=== PATIENT | female | born 1995 | race American Indian/Alaskan Native ===

== ENCOUNTER 2019-03-09 18:30 | Emergency (ER) | payer SELFPAY ==
--- NOTE | 2019-03-09 18:58 | Event Note ---
ED Screening Note Date of service: 03/09/19 Time: 18:54 ED Screening Note: 23 y o femAle presents with low abd pain with bleeding and nausea x sunday This initial assessment/diagnostic orders/clinical plan/treatment(s) is/are subject to change based on patients health status, clinical progression and re- assessment by fellow clinical providers in the ED. Further treatment and workup at subsequent clinical providers discretion. Patient/guardian urged not to elope from the ED as their condition may be serious if not clinically assessed and managed. Initial orders include:
[2019-03-09 19:02] VITALS: BP 116/42
[2019-03-09 19:24] LABS: Mean Corpuscular HGB Conc 29 % (30-34); Red Blood Count 4.28 M/mm3 (3.65-5.03); Red Cell Distribution Width 18.1 % (13.2-15.2)
[2019-03-09] MEDS ORDERED: ZOFRAN IV ONE ×2 (19:27→20:53)
[2019-03-09] MEDS ORDERED: NACL 0.9% 1000 ML 1,000 ML IV ONE (19:27)
[2019-03-09 20:14] LABS: Hematocrit 27.3 % (30.3-42.9); Hemoglobin 7.9 gm/dl (10.1-14.3); Mean Corpuscular Volume 64 fl (79-97)
[2019-03-09 20:16] LABS: Platelet Count 166 K/mm3 (140-440)
--- NOTE | 2019-03-09 20:26 | Emergency Department Report ---
ED Abdominal Pain HPI - General Chief Complaint: Abdominal Pain Stated Complaint: PELVIC PAIN/VOMIT/ABD PAIN Time Seen by Provider: 03/09/19 18:53 Source: patient, family Mode of arrival: Ambulatory Limitations: No Limitations - History of Present Illness Initial Comments: Patient 23-year-old -[place] female who presents with abdominal pain bilateral lower quadrant vaginal bleeding times one month last menstrual cycle one month ago described as cramping 5/10 with nausea vomiting there is no fever or chills patient denies vaginal discharge no concern for STI states she is not pain worsening over the past 3 days. MD Complaint: abdominal pain Onset/Timin -: month(s) Location: LLQ, RLQ Radiation: LLQ, RLQ Migration to: LLQ, RLQ Severity: moderate Severity scale (0 -10): 4 Quality: cramping, aching Consistency: constant Improves With: nothing Worsens With: nothing Associated Symptoms: nausea, vomiting - Related Data LMP Date: 02/04/19 Previous Rx's Medication Instructions Recorded Last Taken Type Dicyclomine [Bentyl] 10 mg PO QID #20 capsule 03/09/19 Unknown Rx HYDROcodone/APAP 5-325 [[place] 1 each PO Q6HR PRN #12 tablet 03/09/19 Unknown Rx 5-325 mg TAB] Ondansetron [Zofran Odt] 4 mg PO Q8HR PRN #12 tab.rapdis 03/09/19 Unknown Rx Allergies Allergy/AdvReac Type Severity Reaction Status Date / Time No Known Allergies Allergy Unverified 03/09/19 20:12 ED Review of Systems ROS: Stated complaint: PELVIC PAIN/VOMIT/ABD PAIN Other details as noted in HPI Constitutional: denies: chills, fever Eyes: denies: eye pain, eye discharge, vision change ENT: denies: ear pain, throat pain Respiratory: denies: cough, shortness of breath, wheezing Cardiovascular: denies: chest pain, palpitations Endocrine: no symptoms reported Gastrointestinal: denies: abdominal pain, nausea, diarrhea Genitourinary: denies: urgency, dysuria, discharge Musculoskeletal: denies: back pain, joint swelling, arthralgia Skin: denies: rash, lesions Neurological: denies: headache, weakness, paresthesias Psychiatric: denies: anxiety, depression Hematological/Lymphatic: denies: easy bleeding, easy bruising ED Past Medical Hx - Past Medical History Previous Medical History?: No - Surgical History Past Surgical History?: No - Social History Smoking Status: Never Smoker Substance Use Type: None - Medications Home Medications: Home Medications Medication Instructions Recorded Confirmed Last Taken Type Dicyclomine [Bentyl] 10 mg PO QID #20 capsule 03/09/19 Unknown Rx HYDROcodone/APAP 5-325 [[place] 1 each PO Q6HR PRN #12 tablet 03/09/19 Unknown Rx 5-325 mg TAB] Ondansetron [Zofran Odt] 4 mg PO Q8HR PRN #12 tab.rapdis 03/09/19 Unknown Rx ED Physical Exam - General Limitations: No Limitations General appearance: alert, in no apparent distress - Head Head exam: Present: atraumatic, normocephalic - Eye Eye exam: Present: normal appearance, PERRL, EOMI Pupils: Present: normal accommodation - ENT ENT exam: Present: mucous membranes moist - Neck Neck exam: Present: normal inspection, full ROM. Absent: lymphadenopathy, thy romegaly - Respiratory Respiratory exam: Present: normal lung sounds bilaterally, chest wall tenderness. Absent: respiratory distress, wheezes, stridor - Cardiovascular Cardiovascular Exam: Present: regular rate, normal rhythm, normal heart sounds. Absent: systolic murmur, diastolic murmur, rubs, gallop - GI/Abdominal GI/Abdominal exam: Present: soft, tenderness (bilat Lower Quad ), normal bowel sounds. Absent: guarding, rebound, rigid, bruit, hernia - Rectal Rectal exam: Present: deferred - External exam: Present: other (exam deferred by patient) - Extremities Exam Extremities exam: Present: normal inspection - Back Exam Back exam: Present: normal inspection, full ROM. Absent: tenderness, CVA tenderness (R), CVA tenderness (L), muscle spasm, paraspinal tenderness, rash noted - Neurological Exam Neurological exam: Present: alert, oriented X3, CN II-XII intact, normal gait, reflexes normal. Absent: motor sensory deficit - Psychiatric Psychiatric exam: Present: normal affect, normal mood - Skin Skin exam: Present: warm, dry, intact, normal color. Absent: rash ED Course Vital Signs 03/09/19 03/09/19 18:57 21:00 Temperature 97.9 F Pulse Rate 50 L Respiratory 16 18 Rate Blood Pressure 116/42 O2 Sat by Pulse 100 Oximetry ED Medical Decision Making - Lab Data Result diagrams: 03/09/19 19:09 Labs 03/09/19 03/09/19 03/09/19 19:09 19:09 19:50 WBC 11.6 H RBC 4.28 Hgb 7.9 L Hct 27.3 L MCV 64 L MCH 18 L MCHC 29 L RDW 18.1 H Plt Count 166 Seg Neutrophils % Weekend Receptionist HCG, Qual Positive Urine Color Yellow Urine Turbidity Slightly-cloudy Urine pH 7.0 Ur Specific [place] 1.024 Urine Protein 30 mg/dl Urine Glucose (UA) Neg Urine Ketones 80 Urine Blood Lg Urine Nitrite Neg Urine Bilirubin Neg Urine Urobilinogen < 2.0 Ur Leukocyte Esterase Tr Urine WBC (Auto) 3.0 Urine RBC (Auto) 3.0 U Epithel Cells (Auto) 11.0 Urine Mucus 1+ - Radiology Data Radiology results: report reviewed, image reviewed Ordering Physician: ZARI CAVAZOS NP Date of Service: 03/09/19 Procedure(s): US OB transvaginal Accession Number(s): [id number] cc: ZARI CAVAZOS NP ULTRASOUND OBSTETRIC INDICATION: Abdominal pain. Vaginal bleeding. Recent per patient. TECHNIQUE: Transvaginal. COMPARISON: None available. FINDINGS: UTERUS: Normal in size, measuring 10.2 x 5.1 x 6.1 cm, without visualization of a gestational sac. The endometrial canal is distended by hyperechoic material without color flow, likely representing blood products. No additional significant abnormality. OVARIES: Normal in size and appearance with expected color flow. No sonographic evidence of an ectopic . FREE FLUID: None seen. ADDITIONAL FINDINGS: None. IMPRESSION: 1. No intrauterine or ectopic is identified sonographically. 2. Distention of the endometrial canal by probable blood products. Signer Name: Stephen Shields MD Signed: 03/09/2019 9:02 PM Workstation Name: [id number] Transcribed By: [place] Dictated By: Stephen Shields MD Electronically Authenticated By: Stephen Shields MD Signed Date/Time: 03/09/192101 DD/ 58 TD/TT: - Medical Decision Making Patient verbalizes she had an on Sunday, 2 days ago, vaginal bleeding is scant 1-2 pads day, H&H is normal ultrasound demonstrates no k no retained parts of conception, symptoms are pain related plan bentyl, zofran, hydrocodone for 2-3 days follow-up with RN POOL on Sunday as scheduled patient tolerated by mouth intake without nausea vomiting pain is relieved to 2/10 patient states she did advise that she had had an due to brother being in room previously patient is to return to ED should symptoms worsen patient DC'd to home in stable condition at this time patient verbalized agreement and understanding with same Critical care attestation.: If time is entered above; I have spent that time in minutes in the direct care of this critically ill patient, excluding procedure time. ED Disposition Clinical Impression: Abdominal pain Qualifiers: Abdominal location: lower abdomen, unspecified Qualified Code(s): R10.30 - Lower abdominal pain, unspecified Disposition: DC- TO HOME OR SELFCARE Is pt being admited?: No Does the pt Need Aspirin: No Condition: Stable Instructions: Abdominal Pain (ED) Prescriptions: Dicyclomine [Bentyl] 10 mg PO QID #20 capsule HYDROcodone/APAP 5-325 [[place] 5-325 mg TAB] 1 each PO Q6HR PRN #12 tablet PRN Reason: Pain Ondansetron [Zofran Odt] 4 mg PO Q8HR PRN #12 tab.rapdis PRN Reason: Nausea And Vomiting Referrals: ALEC LONG MD [Staff Physician] - 3-5 Days Forms: Work/School Release Form(ED) Time of Disposition: 21:17
[2019-03-09 20:28] LABS: Bilirubin,Urine NEG (Negative); Blood,Urine LG (Negative); Color,Urine Yellow (Yellow); Mucus,Urine 1+ /HPF; Urobilinogen,Urine < 2.0 mg/dL (<2.0)
[2019-03-09] MEDS ORDERED: MORPHINE IV ONE (20:53)
--- NOTE | 2019-03-09 21:07 | Ultrasound Report ---
ULTRASOUND OBSTETRIC INDICATION: Abdominal pain. Vaginal bleeding. Recent per patient. TECHNIQUE: Transvaginal. COMPARISON: None available. FINDINGS: UTERUS: Normal in size, measuring 10.2 x 5.1 x 6.1 cm, without visualization of a gestational sac. Th e endometrial canal is distended by hyperechoic material without color flow, likely representing bloo d products. No additional significant abnormality. OVARIES: Normal in size and appearance with expected color flow. No sonographic evidence of an ectopi c . FREE FLUID: None seen. ADDITIONAL FINDINGS: None. IMPRESSION: 1. No intrauterine or ectopic is identified sonographically. 2. Distention of the endometrial canal by probable blood products. Signer Name: Stephen Shields MD Signed: 03/09/2019 9:02 PM Workstation Name: [id number]
[2019-03-09 21:15] LABS: Band Neutrophils # (Manual) 0.2 K/mm3; Basophils % (Manual) 0 % (0.0-1.8); Eosinophils % (Manual) 0 % (0.0-4.3); Total Cells Counted 100
[2019-03-09 21:16] LABS: Hypochromasia 2+; Large Platelets 1+; Ovalocytes 1+; Tear Drop Cells 1+
[2019-03-09 21:17] LABS: Platelet Clumps Few; Platelet Estimate Consistent w Auto
== END 2019-03-09 21:26 | disposition home or self-care (01) ==
LOC: ED 18:30
DX: R10.31 Right lower quadrant pain (principal); R10.32 Left lower quadrant pain
CPT/HCPCS: 36415; 76801; 76817; 81001; 84702; 84703; 85007; 85025; 96361; 96374; 96375; 96376; 99284; J2405; J7030

== ENCOUNTER 2020-09-08 16:14 | Emergency (ER) | payer SELFPAY ==
[2020-09-08 16:32] VITALS: BP 131/71
[2020-09-08 17:30] LABS: Basophils % (Auto) 0.5 % (0.0-1.8); Eosinophils # (Auto) 0.1 K/mm3 (0.0-0.4); Eosinophils % (Auto) 2.6 % (0.0-4.3); Lymphocytes % (Auto) 49.4 % (13.4-35.0); Mean Corpuscular HGB Conc 30 % (30-34); Monocytes # (Auto) 0.3 K/mm3 (0.0-0.8); Monocytes % (Auto) 8.1 % (0.0-7.3); Platelet Count 232 K/mm3 (140-440); Red Blood Count 4.34 M/mm3 (3.65-5.03); Red Cell Distribution Width 17.6 % (13.2-15.2)
[2020-09-08 17:48] LABS: Hematocrit 29.5 % (30.3-42.9); Hemoglobin 8.7 gm/dl (10.1-14.3); Mean Corpuscular Volume 68 fl (79-97)
--- NOTE | 2020-09-08 17:48 | Emergency Department Report ---
ED Chest Pain HPI - General Chief Complaint: Chest Pain Stated Complaint: CHEST PAIN/DIZZY/STOMACH PAIN Time Seen by Provider: 09/08/20 16:54 Source: patient Mode of arrival: Ambulatory Limitations: No Limitations - History of Present Illness Initial Comments: 25-year-old -[place] female patient presents with complaints of intermittent chest pains, shortness of breath, and dizziness x2 days. She denies any shortness of breath, chest pain, or dizziness at current. When the chest pain occurs, patient describes it as sharp in substernal lasting only a few seconds. She states one episode of shortness of breath was yesterday when she stood up from a seated position and also felt dizzy at that moment. She describes the dizziness as lightheadedness and denies any headache, head injuries, vision changes, numbness/tingling/weakness in her limbs, confusion, memory loss, nausea/vomiting, or difficulty with speech/ambulation. She denies being on control or any past history or family history of heart disease. No recent long travel/surgery, leg pain/swelling, cough, hemoptysis, or history of cancer. Patient also denies any fever/chills/sweats, loss of smell/taste, abdominal pain, diarrhea, or urinary symptoms. - Related Data Previous Rx's Medication Instructions Recorded Last Taken Type Dicyclomine [Bentyl] 10 mg PO QID #20 capsule 03/09/19 Unknown Rx HYDROcodone/APAP 5-325 [[place] 1 each PO Q6HR PRN #12 tablet 03/09/19 Unknown Rx 5-325 mg TAB] Ondansetron [Zofran Odt] 4 mg PO Q8HR PRN #12 tab.rapdis 03/09/19 Unknown Rx Ferrous Sulfate [Iron 325 MG] 325 mg PO QDAY 30 Days #30 tablet 09/08/20 Unknown Rx Allergies Allergy/AdvReac Type Severity Reaction Status Date / Time No Known Allergies Allergy Verified 09/08/20 16:20 Heart Score - HEART Score History: Slightly suspicious EKG: Normal Age: < 45 Risk factors: No known risk factors Troponin: < normal limit HEART Score: 0 - Critical Actions Critical Actions: 0-3 pts:0.9-1.7%risk of adverse cardiac event.Candidate for discharge ED Review of Systems ROS: Stated complaint: CHEST PAIN/DIZZY/STOMACH PAIN Other details as noted in HPI Constitutional: denies: chills, fever Eyes: denies: eye pain, vision change Respiratory: denies: cough, shortness of breath Cardiovascular: chest pain. denies: palpitations, edema, syncope Endocrine: denies: flushing Gastrointestinal: denies: abdominal pain Genitourinary: denies: urgency, dysuria, frequency, hematuria Skin: denies: change in color Neurological: denies: headache, numbness, paresthesias, confusion, abnormal gait Hematological/Lymphatic: denies: swollen glands ED Past Medical Hx - Social History Smoking Status: Never Smoker Substance Use Type: None - Medications Home Medications: Home Medications Medication Instructions Recorded Confirmed Last Taken Type Dicyclomine [Bentyl] 10 mg PO QID #20 capsule 03/09/19 Unknown Rx HYDROcodone/APAP 5-325 [[place] 1 each PO Q6HR PRN #12 tablet 03/09/19 Unknown Rx 5-325 mg TAB] Ondansetron [Zofran Odt] 4 mg PO Q8HR PRN #12 tab.rapdis 03/09/19 Unknown Rx Ferrous Sulfate [Iron 325 MG] 325 mg PO QDAY 30 Days #30 tablet 09/08/20 Unknown Rx ED Physical Exam - General Limitations: No Limitations General appearance: alert, in no apparent distress - Head Head exam: Present: atraumatic, normocephalic - Eye Eye exam: Present: normal appearance, PERRL, EOMI. Absent: scleral icterus, conjunctival injection - Neck Neck exam: Present: normal inspection, full ROM - Respiratory Respiratory exam: Present: normal lung sounds bilaterally. Absent: respiratory distress, chest wall tenderness - Cardiovascular Cardiovascular Exam: Present: regular rate, normal rhythm. Absent: systolic murmur, diastolic murmur, rubs, gallop - GI/Abdominal GI/Abdominal exam: Present: soft, normal bowel sounds - Extremities Exam Extremities exam: Present: full ROM. Absent: calf tenderness (No swelling or tenderness noted to legs bilaterally) - Back Exam Back exam: Present: normal inspection - Neurological Exam Neurological exam: Present: alert, oriented X3, CN II-XII intact, normal gait. Absent: motor sensory deficit - Expanded Neurological Exam Expanded Cerebellar function: Finger to Nose: Normal, Heel to Wheat: Normal, [place]: Normal Sensory exam: Upper Extremity Light Touch: Normal, Lower Extremity Light Touch: Normal Motor strength exam: RUE: 5, LUE: 5, RLE: 5, LLE: 5 - Psychiatric Psychiatric exam: Present: normal affect, normal mood - Skin Skin exam: Present: warm, dry, intact, normal color. Absent: rash, cyanosis, diaphoretic, erythema, ecchymosis ED Course Vital Signs 09/08/20 09/08/20 16:17 17:40 Temperature 98.4 F Pulse Rate 101 H 76 Respiratory 20 Rate Blood Pressure 131/71 O2 Sat by Pulse 100 100 Oximetry ED Medical Decision Making - Lab Data Result diagrams: 09/08/20 17:12 09/08/20 17:12 Lab Results 09/08/20 09/08/20 09/08/20 Range/Units 17:12 17:12 17:12 WBC 4.0 L (4.5-11.0) K/mm3 RBC 4.34 (3.65-5.03) M/mm3 Hgb 8.7 L (10.1-14.3) gm/dl Hct 29.5 L (30.3-42.9) % MCV 68 L (79-97) fl MCH 20 L (28-32) pg MCHC 30 (30-34) % RDW 17.6 H (13.2-15.2) % Plt Count 232 (140-440) K/mm3 Lymph % (Auto) 49.4 H (13.4-35.0) % White % (Auto) 8.1 H (0.0-7.3) % Eos % (Auto) 2.6 (0.0-4.3) % Baso % (Auto) 0.5 (0.0-1.8) % Lymph # (Auto) 2.0 (1.2-5.4) K/mm3 White # (Auto) 0.3 (0.0-0.8) K/mm3 Eos # (Auto) 0.1 (0.0-0.4) K/mm3 Baso # (Auto) 0.0 (0.0-0.1) K/mm3 Seg Neutrophils % 39.4 L (40.0-70.0) % Seg Neutrophils # 1.6 L (1.8-7.7) K/mm3 Sodium 140 (137-145) mmol/L Potassium 3.6 (3.6-5.0) mmol/L Chloride 108.2 H (98-107) mmol/L Carbon Dioxide 27 (22-30) mmol/L Anion Gap 8 mmol/L BUN 8 (7-17) mg/dL Creatinine 0.7 (0.6-1.2) mg/dL Estimated GFR > 60 ml/min BUN/Creatinine Ratio 11 % Glucose 87 (65-100) mg/dL Calcium 8.6 (8.4-10.2) mg/dL Total Bilirubin < 0.20 (0.1-1.2) mg/dL AST 18 (5-40) units/L ALT 8 (7-56) units/L Alkaline Phosphatase 55 (35-129) units/L Troponin T (0.00-0.029) ng/mL Total Protein 7.2 (6.3-8.2) g/dL Albumin 3.7 L (3.9-5) g/dL Albumin/Globulin Ratio 1.1 % HCG, Qual Negative (Negative) Urine Color (Yellow) Urine Turbidity (Clear) Urine pH (5.0-7.0) Ur Specific [place] (1.003-1.030) Urine Protein (Negative) mg/dL Urine Glucose (UA) (Negative) mg/dL Urine Ketones (Negative) mg/dL Urine Blood (Negative) Urine Nitrite (Negative) Urine Bilirubin (Negative) Urine Urobilinogen (<2.0) mg/dL Ur Leukocyte Esterase (Negative) Urine WBC (Auto) (0.0-6.0) /HPF Urine RBC (Auto) (0.0-6.0) /HPF U Epithel Cells (Auto) (0-13.0) /HPF Urine Mucus /HPF 09/08/20 09/08/20 Range/Units 17:47 18:52 WBC (4.5-11.0) K/mm3 RBC (3.65-5.03) M/mm3 Hgb (10.1-14.3) gm/dl Hct (30.3-42.9) % MCV (79-97) fl MCH (28-32) pg MCHC (30-34) % RDW (13.2-15.2) % Plt Count (140-440) K/mm3 Lymph % (Auto) (13.4-35.0) % White % (Auto) (0.0-7.3) % Eos % (Auto) (0.0-4.3) % Baso % (Auto) (0.0-1.8) % Lymph # (Auto) (1.2-5.4) K/mm3 White # (Auto) (0.0-0.8) K/mm3 Eos # (Auto) (0.0-0.4) K/mm3 Baso # (Auto) (0.0-0.1) K/mm3 Seg Neutrophils % (40.0-70.0) % Seg Neutrophils # (1.8-7.7) K/mm3 Sodium (137-145) mmol/L Potassium (3.6-5.0) mmol/L Chloride (98-107) mmol/L Carbon Dioxide (22-30) mmol/L Anion Gap mmol/L BUN (7-17) mg/dL Creatinine (0.6-1.2) mg/dL Estimated GFR ml/min BUN/Creatinine Ratio % Glucose (65-100) mg/dL Calcium (8.4-10.2) mg/dL Total Bilirubin (0.1-1.2) mg/dL AST (5-40) units/L ALT (7-56) units/L Alkaline Phosphatase (35-129) units/L Troponin T < 0.010 (0.00-0.029) ng/mL Total Protein (6.3-8.2) g/dL Albumin (3.9-5) g/dL Albumin/Globulin Ratio % HCG, Qual (Negative) Urine Color Yellow (Yellow) Urine Turbidity Clear (Clear) Urine pH 5.0 (5.0-7.0) Ur Specific [place] 1.029 (1.003-1.030) Urine Protein 30 mg/dl (Negative) mg/dL Urine Glucose (UA) Neg (Negative) mg/dL Urine Ketones Neg (Negative) mg/dL Urine Blood Sm (Negative) Urine Nitrite Neg (Negative) Urine Bilirubin Neg (Negative) Urine Urobilinogen 2.0 (<2.0) mg/dL Ur Leukocyte Esterase Neg (Negative) Urine WBC (Auto) 2.0 (0.0-6.0) /HPF Urine RBC (Auto) 29.0 (0.0-6.0) /HPF U Epithel Cells (Auto) 2.0 (0-13.0) /HPF Urine Mucus 3+ /HPF - EKG Data EKG shows normal: sinus rhythm Rate: normal - EKG Data Interpretation: normal EKG - Radiology Data Radiology results: report reviewed CHEST 2 VIEWS INDICATION / CLINICAL INFORMATION: chest pain, shortness of breath. COMPARISON: None available. FINDINGS: SUPPORT DEVICES: None. HEART / MEDIASTINUM: No significant abnormality. LUNGS / PLEURA: No significant pulmonary or pleural abnormality. No pneumothorax. ADDITIONAL FINDINGS: No significant additional findings. IMPRESSION: No significant abnormality - Medical Decision Making 25-year-old -[place] female patient presents with complaints of intermittent chest pains, shortness of breath, and dizziness x2 days. She denies any shortness of breath, chest pain, or dizziness at current. When the chest pain occurs, patient describes it as sharp in substernal lasting only a few seconds. She states one episode of shortness of breath was yesterday when she stood up from a seated position and also felt dizzy at that moment. She describes the dizziness as lightheadedness and denies any headache, head injuries, vision changes, numbness/tingling/weakness in her limbs, confusion, memory loss, nausea/vomiting, or difficulty with speech/ambulation. She denies being on control or any past history or family history of heart disease. No recent long travel/surgery, leg pain/swelling, cough, hemoptysis, or history of cancer. Patient also denies any fever/chills/sweats, loss of smell/taste, abdominal pain, diarrhea, or urinary symptoms. CMP and chest x-ray are negative for acute abnormalities. EKG is normal. Troponin is normal. Heart score = 0. PERC score = 0. Patient continues to deny any current chest pain, shortness of breath, or dizziness. Dizziness only occurs with getting up from a seated position per patient. Orthostatic hypotension noted on vitals. CBC also shows anemia-upon further questioning patient admits to history of this and denies currently taking iron. Discussed importance of taking iron along with vitamin C. patient provided with a primary care provider for follow-up and advised to follow-up within 3 days. Patient also advised to increase her water intake from 30 ounces a day to approximately 80 ounces of water a day. She is well-appearing, her vitals are normal, she is stable for discharge home. Strict return precautions were discussed in detail with patient who verbalizes understanding. Critical care attestation.: If time is entered above; I have spent that time in minutes in the direct care of this critically ill patient, excluding procedure time. ED Disposition Clinical Impression: Orthostatic dizziness, Dehydration Iron deficiency anemia Qualifiers: Iron deficiency anemia type: other iron deficiency Qualified Code(s): D50.8 - Other iron deficiency anemias Disposition: TO HOME OR SELFCARE Is pt being admited?: No Condition: Stable Instructions: Preventing Iron Deficiency Anemia, Adult, Iron-Rich Diet Prescriptions: Ferrous Sulfate [Iron 325 MG] 325 mg PO QDAY 30 Days #30 tablet Referrals: [facility] [Provider Group] - 2-3 Days
[2020-09-08 17:52] LABS: Alanine Aminotransferase 8 units/L (7-56); Albumin 3.7 g/dL (3.9-5); Blood Urea Nitrogen 8 mg/dL (7-17); Calcium 8.6 mg/dL (8.4-10.2); Hemolysis Index 7
[2020-09-08 17:54] LABS: BUN/Creatinine Ratio 11
--- NOTE | 2020-09-08 18:32 | XRay Report ---
CHEST 2 VIEWS INDICATION / CLINICAL INFORMATION: chest pain, shortness of breath. COMPARISON: None available. FINDINGS: SUPPORT DEVICES: None. HEART / MEDIASTINUM: No significant abnormality. LUNGS / PLEURA: No significant pulmonary or pleural abnormality. No pneumothorax. ADDITIONAL FINDINGS: No significant additional findings. IMPRESSION: No significant abnormality Signer Name: Max Lagos MD FACR Signed: 09/08/2020 6:28 PM Workstation Name: [id number]
[2020-09-08 19:24] LABS: Bilirubin,Urine NEG (Negative); Blood,Urine SM (Negative); Color,Urine Yellow (Yellow); Mucus,Urine 3+ /HPF
== END 2020-09-08 20:32 | disposition home or self-care (01) ==
LOC: ED 16:14
DX: D50.9 Iron deficiency anemia, unspecified (principal); E86.0 Dehydration; R42 Dizziness and giddiness; Z79.899 Other long term (current) drug therapy
CPT/HCPCS: 36415; 71046; 80053; 81001; 84484; 84703; 85025; 93005